=== PATIENT | female | born 1950 | race Caucasian/White ===

== ENCOUNTER 2017-09-08 12:52 | Inpatient (IN) | payer BC, MEDICARE ==
[~2017-09-08] VITALS: Ht 167.6 cm; Wt 83.0 kg
[~2017-09-08 12:52] MED LIST: AZIL1TAB3 PO; EZET1TAB26 PO; LEVO150T8 PO; METO100T14 PO; PARO20TA6 PO
[2017-09-08 13:14] LABS: BASOPHILS # (AUTO) 0.1 X10'3 (0-0.2); BASOPHILS % (AUTO) 1.2 % (0-1); EOSINOPHILS # (AUTO) 0.1 X10'3 (0-0.9); HEMATOCRIT 39.5 % (35.0-45.0); HEMOGLOBIN 13.7 g/dl (12.0-16.0); LYMPHOCYTES # (AUTO) 1.9 X10'3 (1.1-4.8); MEAN CORPUSCULAR HEMOGLOBIN 32.6 PG (27.0-31.0); MEAN CORPUSCULAR HGB CONC 34.6 % (33.0-36.5); MEAN CORPUSCULAR VOLUME 94.1 FL (78-98); MEAN PLATELET VOLUME 7.3 FL (7.4-10.4); MONOCYTES # (AUTO) 0.5 X10'3 (0-0.9); MONOCYTES % (AUTO) 10.4 % (2-12); NEUTROPHILS # (AUTO) 2.1 X10'3 (1.8-7.7); NEUTROPHILS % (AUTO) 44.4 % (42-75); PLATELET COUNT 270 X10'3 (140-440); RED CELL DISTRIBUTION WIDTH 12.5 % (11.5-14.5); WHITE BLOOD COUNT 4.7 X10'3 (4.5-11.0)
[2017-09-08 13:25] LABS: PARTIAL THROMBOPLASTIN TIME 27 SECONDS (22-32); PROTHROMBIN TIME 10.4 SECONDS (9.0-12.0)
[2017-09-08 13:30] LABS: ALANINE AMINOTRANSFERASE 33 U/L (12-78); ALBUMIN 3.8 G/DL (3.4-5.0); ALBUMIN/GLOBULIN RATIO 1.1 (1.1-1.5); ALKALINE PHOSPHATASE 61 IU/L (46-116); ANION GAP 7 (8-16); ASPARTATE AMINO TRANSFERASE 23 U/L (10-37); BILIRUBIN,TOTAL 0.6 MG/DL (0.1-1.0); BLOOD UREA NITROGEN 14 MG/DL (7-18); BUN/CREATININE RATIO 17.1 (6.6-38.0); CALCIUM 9.1 MG/DL (8.5-10.1); CHLORIDE 105 MMOL/L (99-107); CREATININE 0.82 MG/DL (0.40-0.90); GLUCOSE 118 MG/DL (70-104); POTASSIUM 4.6 MMOL/L (3.5-5.1); SODIUM 143 MMOL/L (135-145); TOTAL CARBON DIOXIDE 30.8 MMOL/L (24-32); TOTAL PROTEIN 7.2 G/DL (6.4-8.2); eGFR 69 ML/MIN
[2017-09-08] MEDS ORDERED: normal saline 1000ml 1,000 ML IV ONE (14:25)
[2017-09-08] MEDS ORDERED: iohexol 350MG/ML 100ml bottle IV ONE (14:29)
[2017-09-08] MEDS ORDERED: aspirin 325mg tablet PO ONE (15:10)
[2017-09-08] MEDS ORDERED: magnesium hydroxide 30ml (MOM) UD suspension PO PRN (16:15)
[2017-09-08] MEDS ORDERED: morphine 4 MG/ML inj SYRINge IV PRN ×2 (16:15)
[2017-09-08] MEDS ORDERED: ondansetron/PF 4mg/2ml inj IV PRN (16:15)
[2017-09-08] MEDS ORDERED: potassium Cl 20 mEq SR tablet PO PRN ×2 (16:15)
[2017-09-08] MEDS ORDERED: potassium Cl 40MEQ/NS 500ml 500 ML IV PRN ×2 (16:15)
[2017-09-08] MEDS ORDERED: bisacodyl 10mg suppository rectal RC PRN (16:15)
[2017-09-08] MEDS ORDERED: magnesium 4gm in 100ml NS 100 ML IV PRN (16:15)
[2017-09-08] MEDS ORDERED: acetaminophen 325mg tablet PO PRN (16:15)
[2017-09-08] MEDS ORDERED: mag hydrox/Alum hydrox/simeth 30ml oral suspension PO PRN (16:15)
[2017-09-08] MEDS ORDERED: magnesium Cl slow-release 64mg tablet PO PRN (16:15)
[2017-09-08] MEDS ORDERED: magnesium 2GM in 50ml NS 50 ML IV PRN (16:15)
[2017-09-08] MEDS ORDERED: losartan 25mg tablet PO SCH (16:25)
[2017-09-08] MEDS ORDERED: nitroGLYCERIN 0.2mg/hour patch TD SCH (16:25)
[2017-09-08] MEDS ORDERED: pantoprazole 40 MG vial IV SCH (16:25)
[2017-09-08] MEDS: sodium chloride 0.45% 1,000 ML IV SCH (16:39)
[2017-09-08] MEDS ORDERED: metoprolol tartrate 1mg/ml inj IV PRN (19:30)
[2017-09-08] MEDS ORDERED: regadenoson 0.4mg/5ml syringe IV ONE (19:30)
[2017-09-08] MEDS ORDERED: nitroGLYCERIN 0.4mg SUBLingual tab SL PRN (19:30)
[2017-09-08] MEDS ORDERED: aminophylline 250mg/10ml inj. IV PRN (19:30)
[2017-09-08] MEDS ORDERED: docusate sod 100mg capsule PO SCH (20:00)
[2017-09-08] MEDS ORDERED: regadenoson 0.4mg/5ml syringe IV PRN (20:10)
[2017-09-08] MEDS ORDERED: metoprolol succinate 25mg (24-HOUR) SR. Tablet PO SCH (21:00)
[2017-09-09] VITALS (11 sets, daily range): BP systolic 111–145; BP diastolic 67–81
[2017-09-09 01:03] LABS: BASOPHILS % (AUTO) 0.7 % (0-1); EOSINOPHILS # (AUTO) 0.1 X10'3 (0-0.9); EOSINOPHILS % (AUTO) 2.8 % (0-6); HEMOGLOBIN 11.7 g/dl (12.0-16.0); LYMPHOCYTES # (AUTO) 1.6 X10'3 (1.1-4.8); LYMPHOCYTES % (AUTO) 36.9 % (21-51); MEAN CORPUSCULAR HEMOGLOBIN 32.6 PG (27.0-31.0); MEAN CORPUSCULAR HGB CONC 34.5 % (33.0-36.5); MEAN CORPUSCULAR VOLUME 94.4 FL (78-98); MEAN PLATELET VOLUME 7.9 FL (7.4-10.4); MONOCYTES # (AUTO) 0.5 X10'3 (0-0.9); MONOCYTES % (AUTO) 11.3 % (2-12); NEUTROPHILS % (AUTO) 48.3 % (42-75); PLATELET COUNT 202 X10'3 (140-440); RED CELL DISTRIBUTION WIDTH 11.6 % (11.5-14.5); WHITE BLOOD COUNT 4.2 X10'3 (4.5-11.0)
[2017-09-09 01:15] LABS: ALANINE AMINOTRANSFERASE 28 U/L (12-78); ALKALINE PHOSPHATASE 49 IU/L (46-116); ANION GAP 7 (8-16); ASPARTATE AMINO TRANSFERASE 20 U/L (10-37); BILIRUBIN,TOTAL 0.5 MG/DL (0.1-1.0); BLOOD UREA NITROGEN 15 MG/DL (7-18); BUN/CREATININE RATIO 17.4 (6.6-38.0); CALCIUM 8.1 MG/DL (8.5-10.1); CHLORIDE 108 MMOL/L (99-107); CHOL/HDL RATIO 3.4 (0.00-4.99); CHOLESTEROL 181 MG/DL (0-200); CREATININE 0.86 MG/DL (0.40-0.90); GLUCOSE 102 MG/DL (70-104); HDL CHOLESTEROL 53 MG/DL (35-60); LDL CHOLESTEROL 108 MG/DL (50-100); POTASSIUM 4.2 MMOL/L (3.5-5.1); SODIUM 144 MMOL/L (135-145); TOTAL CARBON DIOXIDE 29.4 MMOL/L (24-32); TOTAL PROTEIN 5.9 G/DL (6.4-8.2); TRIGLYCERIDES 112 MG/DL (20-135); eGFR 66 ML/MIN
[2017-09-09] MEDS: sodium chloride 0.45% 1,000 ML IV SCH (06:31)
[2017-09-09] MEDS ORDERED: levoTHYROXINE 75mcg tablet PO SCH (07:00)
[2017-09-09] MEDS ORDERED: K and/or MAG REPLACEMENT MC SCH (08:00)
[2017-09-09] MEDS ORDERED: ezetimibe 10mg tablet PO SCH (08:00)
[2017-09-09] MEDS ORDERED: aspirin 81mg tablet.DR PO SCH (08:00)
[2017-09-09] MEDS ORDERED: enoxaparin 40mg/0.4ml syringe SUBCUT SCH (08:00)
[2017-09-09] MEDS ORDERED: PARoxetine 20mg tablet PO SCH (08:00)
[2017-09-09] MEDS ORDERED: atorvastatin 10mg tablet PO SCH (08:00)
[2017-09-09] MEDS ORDERED: aminophylline inj. 10 ML IV ONE (08:48)
[2017-09-09] MEDS ORDERED: regadenoson 0.4mg/5ml syringe IV ONE (08:48)
[2017-09-09] MEDS ORDERED: AMLO5TAB16 PO (09:56)
[2017-09-09] MEDS ORDERED: ASPI81TA52 PO (09:56)
[2017-09-09] MEDS ORDERED: PANT-47 PO (12:53)
[2017-09-10] MEDS ORDERED: pantoprazole 40mg Tablet.DR PO SCH (07:30)
== END 2017-09-09 14:15 | disposition home or self-care (01) | DRG 392 ==
LOC: ER 12:53 → ED HOLD 16:13
PROVIDERS: ADMIT Internal Medicine; ATTEND Internal Medicine
PROC: B3201ZZ Computerized Tomography (CT Scan) of Thoracic Aorta using Low Osmolar Contrast (ICD-10-PCS; principal; 2017-09-08)
PROC: 4A02XM4 Measurement of Cardiac Total Activity, External Approach (ICD-10-PCS; 2017-09-09)
PROC: 3E073KZ Introduction of Other Diagnostic Substance into Coronary Artery, Percutaneous Approach (ICD-10-PCS; 2017-09-09)
DX: K21.9 Gastro-esophageal reflux disease without esophagitis (principal); I69.351 Hemiplegia and hemiparesis following cerebral infarction affecting right dominant side; E03.9 Hypothyroidism, unspecified; E78.5 Hyperlipidemia, unspecified; I10 Essential (primary) hypertension; I25.10 Atherosclerotic heart disease of native coronary artery without angina pectoris; K44.9 Diaphragmatic hernia without obstruction or gangrene; M19.90 Unspecified osteoarthritis, unspecified site; Z66 Do not resuscitate; Z82.5 Family history of asthma and other chronic lower respiratory diseases; Z90.49 Acquired absence of other specified parts of digestive tract; Z90.710 Acquired absence of both cervix and uterus; Z98.1 Arthrodesis status; Z88.5 Allergy status to narcotic agent; Z88.0 Allergy status to penicillin; Z91.018 Allergy to other foods
CPT/HCPCS: 36415; 71045; 71260; 78452; 80053; 80061; 83735; 84484; 85025; 85610; 85730; 87070; 93005; 93017; 93306; 96360; 99285; A9500; C9113; J0280; J7030; Q9967